=== PATIENT | female | born 1945 | race Caucasian/White ===

== ENCOUNTER → 2016-07-12 13:13 | Outpatient (CLI) | payer MEDICARE, BC | END | disposition home or self-care (01) | LOC: D.MRI 13:13 | DX: M25.511 Pain in right shoulder (principal) ==

== ENCOUNTER → 2017-05-20 13:09 | Outpatient (CLI) | payer MEDICARE, BC | END | disposition home or self-care (01) | LOC: D.CT 13:00 | DX: S92.902A Unspecified fracture of left foot, initial encounter for closed fracture (principal); X58.XXXA Exposure to other specified factors, initial encounter; Y93.89 Activity, other specified; Y92.89 Other specified places as the place of occurrence of the external cause ==

== ENCOUNTER → 2018-02-28 12:45 | Outpatient (CLI) | payer MEDICARE, BC | END | disposition home or self-care (01) | LOC: D.RAD 12:45 | DX: M25.551 Pain in right hip (principal) ==

== ENCOUNTER 2018-03-23 20:55 | Emergency (ER) | payer MEDICARE, BC ==
[~2018-03-23] VITALS: Ht 162.6 cm; Wt 81.6 kg
[2018-03-23 20:58] VITALS: Ht 162.6 cm; Wt 81.6 kg
[2018-03-23] MEDS ORDERED: PROBIOTIC1 EAC1 PO (21:01)
[2018-03-23] MEDS ORDERED: COZAAR100 MG PO (21:01)
[2018-03-23 21:55] LABS: BASOPHILS 0.6 % (0-2); EOSINOPHILS 2.6 % (0-7); HEMOGLOBIN 13.2 g/dL (12-16); IMMATURE GRANULOCYTES 0.3 % (0-5); LYMPHOCYTES 27.7 % (15-50); MCH 27.5 pg (26.0-34.0); MCHC 32.2 g/dL (31.0-37.0); MCV 85.4 fL (80.0-100.0); MEAN PLATELET VOLUME 11.5 fL (7.4-10.4); MONOCYTES 6.9 % (2-11); NEUTROPHILS 61.9 % (40-80); PLATELET COUNT 239 10x3/uL (130-400); RDW 13.7 % (11.5-14.5)
[2018-03-23 21:56] LABS: ALBUMIN 3.6 g/dL (3.4-5.0); ALKALINE PHOSPHATASE 105 U/L (46-116); ALT (SGPT) 25 U/L (10-68); BILIRUBIN - TOTAL 0.13 mg/dL (0.2-1.3); CALC OSMOLALITY 293 mosm/kg (275-300); CALCIUM 9.4 mg/dL (8.5-10.1); CHLORIDE - SERUM 106 mmol/L (98-107); CKMB 2.4 U/L (0.0-3.6); CREATINE KINASE 89 UL (21-215); CREATININE - SERUM 0.9 mg/dL (0.6-1.3); GLUCOSE 183 mg/dL (74-106); POTASSIUM - SERUM 3.4 mmol/L (3.5-5.1); PROTEIN - SERUM 7.1 g/dL (6.4-8.2); SODIUM 144 mmol/L (136-145); TROPONIN-I 0.033 ng/mL (0.000-0.060); UREA NITROGEN 17 mg/dL (7-18); eGFR NON AFRICAN AMERICAN 66 mL/min (90-120)
[2018-03-23 21:59] LABS: APPEARANCE CLEAR (CLEAR); BILIRUBIN NEGATIVE (NEGATIVE); COLOR YELLOW (YELLOW); GLUCOSE NEGATIVE (NEGATIVE); KETONE NEGATIVE (NEGATIVE); NITRITE NEGATIVE (NEGATIVE); PROTEIN NEGATIVE (NEGATIVE); SPECIFIC GRAVITY 1.005 (1.005-1.020); UROBILINOGEN NORMAL (NORMAL)
[2018-03-23 22:07] LABS: APTT 27.3 SECONDS (22.8-39.4); INR 0.91 (0.85-1.17); PROTIME 11.9 SECONDS (11.6-15.0)
[2018-03-23 22:27] LABS: MAGNESIUM - SERUM 1.9 mg/dL (1.8-2.4); TROPONIN-I 0.026 ng/mL (0.000-0.060)
[2018-03-23 22:40] LABS: BASOPHILS 0.6 % (0-2); EOSINOPHILS 2.7 % (0-7); HEMATOCRIT 41.1 % (36.0-48.0); HEMOGLOBIN 13.2 g/dL (12-16); IMMATURE GRANULOCYTES 0.3 % (0-5); LYMPHOCYTES 27.4 % (15-50); MCH 27.5 pg (26.0-34.0); MCHC 32.1 g/dL (31.0-37.0); MCV 85.6 fL (80.0-100.0); MEAN PLATELET VOLUME 12.3 fL (7.4-10.4); PLATELET COUNT 253 10x3/uL (130-400); RDW 13.7 % (11.5-14.5); WBC 9.5 10x3/uL (4.8-10.8)
[2018-03-24 00:58] VITALS: BP 127/77
== END 2018-03-24 01:01 | disposition home or self-care (01) ==
LOC: D.ER 20:55
PROVIDERS: Family Medicine
DX: R00.0 Tachycardia, unspecified (principal); I10 Essential (primary) hypertension

== ENCOUNTER → 2018-04-17 13:52 | Outpatient (CLI) | payer MEDICARE, BC ==
[~2018-04-17 13:52] MED LIST: COZAAR100 MG PO; PROBIOTIC1 EAC1 PO
== END | disposition home or self-care (01) ==
LOC: D.HCCARDIO 13:52
DX: I20.9 Angina pectoris, unspecified (principal)

== ENCOUNTER → 2018-04-28 08:46 | Outpatient (CLI) | payer MEDICARE, BC | END | disposition home or self-care (01) | LOC: D.HCCARDIO 08:30 | DX: I20.9 Angina pectoris, unspecified (principal) ==

== ENCOUNTER 2018-05-29 11:00 | Outpatient (CLI) | payer MEDICARE, BC ==
[~2018-05-29] VITALS: Ht 162.6 cm; Wt 82.3 kg
--- NOTE | ~2018-05-29 | HEMODYNAMI ---
PATIENT:KEVIN CRANE MEDICAL RECORD: [id number] : 49 LOCATION:[facility] ADMISSION DATE: 05/29/18 Generatedon:05/29/201813:18 Patient name: KEVIN CRANE Patient #: [id number] SSN: : 1945 Date of study: 05/29/2018 Page: Of Hemodynamic Procedure Report Patient Data Patient Demographics Procedure consent was obtained First Name: KEVIN Gender: Female Last Name: ROSA MARIA : 1945 Middle Initial: WILLIAM Age: 72 year(s) Patient #: [id number] Race: Unknown Additional ID: [id number] Contact details [address]: [address] [place] [address] State: [place] City: [place] Zip code: [address] Admission Admission Data Admission Date: 05/29/2018 Admission Time: 11:00 Procedure Procedure Types Cath Procedure Diagnostic Procedure LHC LHC w/Coronaries Procedure Description Procedure Date Procedure Date: 05/29/2018 Procedure Start Time: 13:00 Procedure End Time: 13:17 Procedure Staff Name Function Jaiden Arellano MD Performing Physician Efrain Bruno RT Monitor Rahul Alcala RN Nurse Brooke Mosley RT Scrub Procedure Data Cath Procedure Fluoroscopy Diagnostic fluoroscopy Total fluoroscopy Time: 1.6 time: 1.6 min min Diagnostic fluoroscopy Total fluoroscopy dose: 346 dose: 346 mGy mGy Contrast Material Contrast Material Type Amount (ml) Isovue 300 55 Entry Location Entry Primary Successful Side Size Upsize Upsize Entry Closure Succes sful Closure Location (Fr) 1 (Fr) 2 (Fr) Remarks Device Remarks Femoral Right 5 Fr Exoseal artery Estimated blood loss: 10 ml Diagnostic catheters Device Type Used For End Catheter Placement MULTIPACK JL 4.0 5Fr Procedure catheter MULTIPACK 3DRC 5Fr Procedure catheter MULTIPACK Pigtail 5 Fr Procedure catheter Procedure Complications No complications Procedure Medications Medication Administration Route Dosage 0.9% NaCl I.V. 100 ml/hr Oxygen etCO2 Nasal cannula 2 l/min Heparin Flush Bag added to field 2 bags (1000units/500ml NS) Lidocaine 2% S.C. 20 Versed I.V. 1 mg Fentanyl I.V. 50 mcg Versed I.V. 1 mg Fentanyl I.V. 50 mcg Hemodynamics Rest Heart Rate: 68 (bpm) Pressure Samples Time Site Value (mmHg) Purpose Heart Use Rate(bpm) 13:03 AO 151/71(105) Snapshot 72 13:07 LV 156/-6,16 Snapshot 68 13:07 AO 167/70(113) Pullback 67 13:07 LV 161/3,19 Pullback 67 Gradients Valve Time Site 1 Site 2 Mean SEP/DFP Peak To Heart Use (mmHg) (sec/min) Peak Rate (mmHg) (bpm) Aortic 13:07 LV AO 0 14 0 67 161/3,19 167/70(113) Calculations Valve P-P Mean Valve Index Valve Source Name Gradient Area Flow (cm2) Aortic 0 0 0 0 Snapshots Pre Cath Intra NCS Post Cath Vital Signs Time Heart Resp SPO2 etCO2 NIBP (mmHg) Rhythm Pain Sedation Rate (ipm) (%) (mmHg) Status Level (bpm) 12:49:14 67 17 100 35.7 155/73(121) NSR 0 (11) 10(A) , No pain 12:53:34 71 33 99 36.4 143/70(103) NSR 0 (11) 10(A) , No pain 12:57:52 70 13 100 35.7 141/63(111) NSR 0 (11) 10(A) , No pain 13:02:08 67 10 98 26.6 128/68(108) NSR 0 (11) 10(A) , No pain 13:06:18 71 18 97 0 133/71(106) NSR 0 (11) 9(A) , No pain 13:10:32 73 12 98 41.8 131/66(102) NSR 0 (11) 9(A) , No pain 13:14:44 76 12 98 39.5 131/70(115) NSR 0 (11) 9(A) , No pain Medications Time Medication Route Dose Verified Delivered Reason Notes Eff ectiveness by by 12:48:50 0.9% NaCl I.V. 100 Rahul Rahul Per ml/hr Cari Alcala physician RN RN 12:49:01 Oxygen etCO2 2 Rahul Rahul Per Nasal l/min Lorigan Lorigan physician cannula RN RN 12:49:11 Heparin Flush added 2 Rahul Rahul used for Bag to bags Cari Alcala procedure (1000units/500ml field RN RN NS) 12:49:22 Lidocaine 2% S.C. 20ml Rahul Rahul for local vial Lorigan Lorigan anesthetic RN RN 12:55:50 Versed I.V. 1 mg Rahul Rahul for Lorigan Lorigan sedation RN RN 12:56:00 Fentanyl I.V. 50 Rahul Rahul for mcg Lorigan Lorigan sedation RN RN 13:00:31 Versed I.V. 1 mg Rahul Rahul for Lorigan Lorigan sedation RN RN 13:00:37 Fentanyl I.V. 50 Rahul Rahul for mcg Lorigan Lorigan sedation RN home energy consultant Log Time Note 12:38:36 Time tracking: Regular hours (M-F 7:00 - 5:00) 12:38:40 Plan of Care:Hemodynamics will remain stable., Cardiac rhythm will remain stable., Comfort level will be maintained., Respiratory function will remain adequate., Patient/ family verbilizes understanding of procedure., Procedure tolerated without complication., Recovers from procedure without complications.. 12:38:42 Rahul Alcala RN sent for patient. Start room use. 12:39:22 Patient received from Pre/Post Procedure Room to CCL 2 Alert and oriented. Tansferred to table in Supine position. 12:39:23 Warm blankets applied, and magdaleno hugger turned on for patient comfort. 12:39:24 Correct patient and procedure confirmed by team. 12:39:25 Signed procedure consent form obtained from patient. 12:39:26 ECG and BP/O2 sat monitors applied to patient. 12:39:27 Full Disclosure recording started 12:48:03 Vital chart was started 12:48:50 0.9% NaCl 100 ml/hr I.V. was administered by Rahul Alcala RN; Per physician; 12:49:01 Oxygen 2 l/min etCO2 Nasal cannula was administered by Rahul Alcala RN; Per physician; 12:49:11 Heparin Flush Bag (1000units/500ml NS) 2 bags added to field was administered by Rahul Alcala RN; used for procedure; 12:49:22 Lidocaine 2% 20ml vial S.C. was administered by Rahul Alcala RN; for local anesthetic; 12:50:15 Baseline sample Acquired. 12:50:19 Rhythm: sinus rhythm 12:50:30 H&P Date Dictated: 05/29/2018 New H&P dictated by physician.. 12:50:31 Pre-procedure instructions explained to patient. 12:50:31 Pre-op teaching completed and patient verbalized understanding. 12:50:33 Family in patients room. 12:50:35 Patient NPO since Midnight. 12:50:36 Is the patient allergic to Iodine/contrast media? No. 12:50:39 Is patient on blood thinner?No 12:50:41 Patient diabetic? No. 12:50:44 Previous problem with sedation/anesthesia? No ? 12:50:45 Snore? Yes 12:50:46 Sleep apnea? No 12:50:47 Deviated septum? No 12:50:48 Opens mouth fully? Yes 12:50:49 Sticks out tongue? Yes 12:50:50 Airway obstruction? No ? 12:50:52 Dentures? No ? 12:50:54 Modified Matt's test Ulnar > 7 seconds. 12:50:56 FAILED ALLENS 12:50:56 Pre procedure: right dorsailis pedis pulse 1+ Palpable, but thready & weak; easily obliterated 12:50:57 Patient pain scale 0/10 ?. 12:51:02 IV patent on arrival in left forearm with 0.9% NaCl at [facility]. 12:51:04 Lab results completed and on chart. 12:51:08 Right groin area was prepped with chlora-prep and draped in sterile fashion 12:51:22 Alarms reviewed by R. N. 12:51:23 Sharps counted by scrub and verified by R.N. 12:53:59 Use device set Femoral Dx 12:54:46 Tegaderm 4 x 4 ([id number]) opened to sterile field. 12:54:47 ACIST Manifold (98970) opened to sterile field. 12:54:48 ACIST Hand Control (25280) opened to sterile field. 12:54:49 ACIST Syringe (39127) opened to sterile field. 12:54:49 Bag Decanter (2002S) opened to sterile field. 12:54:50 Medline Cath Pack ([id number]) opened to sterile field. 12:54:51 DIAGNOSTIC WIRE .035 260cm J wire (404947) opened to sterile field. 12:54:52 DIAGNOSTIC Multipack 5Fr catheter set ([id number]) opened to sterile field. 12:54:53 SHEATH 5FR Largo ([id number]) opened to sterile field. 12:55:13 --------ALL STOP TIME OUT------ 12:55:13 Final Timeout: patient, procedure, and site verified with staff and physician. All members of the team are in agreement. 12:55:15 Right groin site verified by team. 12:55:17 Physical assessment completed. ASA score P 2 - A patient with mild systemic disease as per Jaiden Arellano MD. 12:55:20 Sedation plan: IV Moderate Sedation Medication:Versed, Fentanyl 12:55:50 Versed 1 mg I.V. was administered by Rahul Alcala RN; for sedation; 12:56:00 Fentanyl 50 mcg I.V. was administered by Rahul Alcala RN; for sedation; 13:00:31 Versed 1 mg I.V. was administered by Rahul Alcala RN; for sedation; 13:00:32 Procedure started. 13:00:37 Fentanyl 50 mcg I.V. was administered by Rahul Alcala RN; for sedation; 13:00:42 Local anesthetic to right femoral artery with Lidocaine 2% by Jaiden Arellano MD.INITIAL ACCESS ONLY 13:02:05 A 5 Fr sheath was inserted into the Right Femoral artery 13:02:26 A MULTIPACK JL 4.0 5Fr catheter was advanced over the wire and used for Procedure. 13:03:20 LCA angiography performed. 13:04:10 Catheter exchanged over wire. 13:04:15 A MULTIPACK 3DRC 5Fr catheter was advanced over the wire and used for Procedure. 13:05:30 RCA angiography performed. 13:05:54 Catheter exchanged over wire. 13:06:56 A MULTIPACK Pigtail 5 Fr catheter was advanced over the wire and used for Procedure. 13:07:19 LV angiography performed. 13:07:20 LV gram done using BASURTO 13:08:17 LV hemodynamics recorded. 13:08:21 Injector settings: Ml/sec: 10, Volume: 20, 13:08:28 Catheter exchanged over wire. 13:10:01 EXOSEAL 5Fr (EX500) opened to sterile field. 13:10:28 Sheath removed intact; hemostasis achieved with Exoseal to the Right Femoral artery. 13:10:31 Procedure ended.(Physican Out) 13:13:13 Fluoroscopy time 01.60 minutes. 13:13:16 Fluoroscopy dose: 346 mGy 13:13:16 Flurop Dose total: 346 13:13:28 Contrast amount:Isovue 300 55ml. 13:13:30 Sharps counted by scrub and verified by R.N. 13:13:32 Insertion/operative site no bleeding no hematoma. 13:13:34 Post-op/insertion site Right Femoral artery dressed using a 4 x 4 and Tegaderm. 13:13:36 Post Procedure Pulses reassessed and unchanged 13:13:38 Post-procedure physical assessment completed. ASA score P 2 - A patient with mild systemic disease as per Jaiden Arellano MD. 13:13:41 Post procedure rhythm: unchanged. 13:13:44 Estimated blood loss: 10 ml 13:13:45 Post procedure instruction explained to patient.Patient verbalizes understanding. 13:13:46 Patient needs reinforcement of post procedure teaching. 13:13:53 Procedure and supply charges have been captured, reviewed, submitted and are correct. 13:13:56 Procedure Complication : No complications 13:17:30 Vital chart was stopped 13:17:30 See physician's report for complete and final results. 13:17:32 Report given to Pre/Post Procedure Room. 13:17:34 Patient transfered to Pre/Post Procedure Room with Stretcher. 13:17:36 Procedure ended. 13:17:36 Full Disclosure recording stopped 13:17:42 End room use (Document Last) Device Usage Item Name Manufacture Quantity Catalog Hospital Part Current Minimal L ot# / Number Charge Number Stock Stock Serial# Code Tegaderm 4 3M 1 1626W [id number] [id number] 150521 5 x 4 (1626W) ACIST Acist 1 07137 428782 521280 182790 5 Manifold Medical (68285) Systems Inc ACIST Hand Acist 1 74513 604993 498218 882563 5 Control Medical (75181) Systems Inc ACIST Acist 1 04560 335466 159771 792021 20 Syringe Medical (95080) Systems Inc Bag Microtek 1 2002S 899073 89584 197998 5 Decanter Medical Inc. (2002S) Medline Medline 1 [id number] 224161 10633 855928 5 Cath Pack ([id number]) DIAGNOSTIC St Jaskaran 1 262430 226769 474050 057264 30 WIRE .035 260cm J wire (144813) DIAGNOSTIC Cardinal 1 UC9740 837962 90853 971341 30 Multipack Health 5Fr catheter set (ER4885) SHEATH 5FR Terumo 1 JFW025 346856 914996 208789 5 Largo ([id number]) MULTIPACK Cardinal 1 322266 5 JL 4.0 5Fr Health catheter MULTIPACK Cardinal 1 458106 5 3DRC 5Fr Health catheter MULTIPACK Cardinal 1 858649 5 Pigtail 5 Health Fr catheter EXOSEAL 5Fr Cardinal 1 EX500 485268 448103 002585 10 (EX500) Health Signature Audit [place] Stage Time Signature Unsigned Intra-Procedure 05/29/2018 Efrain Bruno 1:18:02 PM RT(R) Signatures Monitor : Efrain Bruno RT Signature : Date : Time : [place] [id number] [facility] [place] [address]
[2018-05-29] MEDS ORDERED: FISH OIL 1,0001 CA1 PO (11:13)
[2018-05-29] MEDS ORDERED: TOPROL XL25 MG PO (11:13)
[2018-05-29 11:24] VITALS: BP 167/67; Ht 162.6 cm; Wt 82.3 kg
[2018-05-29 11:35] LABS: BASOPHILS 0.6 % (0-2); EOSINOPHILS 3.2 % (0-7); HEMOGLOBIN 13.9 g/dL (12-16); IMMATURE GRANULOCYTES 0.2 % (0-5); LYMPHOCYTES 25.9 % (15-50); MCH 27.5 pg (26.0-34.0); MCHC 32.3 g/dL (31.0-37.0); MEAN PLATELET VOLUME 11.8 fL (7.4-10.4); MONOCYTES 7.2 % (2-11); NEUTROPHILS 62.9 % (40-80); PLATELET COUNT 240 10x3/uL (130-400); RBC 5.06 10x6/uL (4.00-5.40); RDW 13.9 % (11.5-14.5)
[2018-05-29 11:51] LABS: ANION GAP 12.3 mmol/L (8-16); CALCIUM 8.9 mg/dL (8.5-10.1); CARBON DIOXIDE 26.8 mmol/L (21.0-32.0); CREATININE - SERUM 0.9 mg/dL (0.6-1.3); POTASSIUM - SERUM 4.1 mmol/L (3.5-5.1)
[2018-05-29] MEDS ORDERED: ISOSORBIDE MONO30 M1 PO (13:31)
--- NOTE | 2018-05-29 13:40 | NUR ---
RIGHT GROIN DRESSING C/D/I. NO S/S OF HEMATOMA NOTED. RIGHT PEDAL PULSE PALPABLE. PT STILL DROWSY. FAMILY AT BEDSIDE.
--- NOTE | 2018-05-29 13:45 | NUR ---
GAVE PT'S FAMILY A HANDOUT ON IMDUR.
--- NOTE | 2018-05-29 14:25 | NUR ---
RIGHT GROIN DRESSING C/D/I. NO S/S OF HEMATOMA NOTED. RIGHT PEDAL PULSE PALPABLE. PT'S HEAD OF BED INCREASED. SET UP WITH SANDWICH TRAY. FAMILY AT BEDSIDE. VSS AT THIS TIME.
--- NOTE | 2018-05-29 15:00 | NUR ---
LEFT FA PIV D/C'D WITH CATH TIP INTACT. PT TOLERATED WELL. PT INSTRUCTED TO GET DRESSED.
--- NOTE | 2018-05-29 15:24 | NUR ---
DISCUSSED DISCHARGE INSTRUCTIONS WITH PT AND PT'S FAMILY. THEY VOICED UNDERSTANDING. RIGHT GROIN DRESSING C/D/I. SOFT TO TOUCH. NO S/S OF HEMATOMA. RIGHT PEDAL PULSE PALPABLE.
--- NOTE | 2018-05-29 15:35 | NUR ---
PT TAKEN BY WHEELCHAIR. STOPPED AT RESTROOM AND VOIDED WITHOUT DIFFICULTY. NO S/S OF DISTRESS NOTED. TAKEN OUT TO VEHICLE. ALL BELONGINGS IN HAND.
== END 2018-05-29 15:35 | disposition home or self-care (01) ==
LOC: D.CATH 11:00
PROVIDERS: Internal Medicine Cardiovascular Disease
DX: I25.119 Atherosclerotic heart disease of native coronary artery with unspecified angina pectoris (principal); R94.30 Abnormal result of cardiovascular function study, unspecified; I10 Essential (primary) hypertension

== ENCOUNTER → 2018-06-06 07:36 | Outpatient (CLI) | payer MEDICARE, BC ==
[2018-05-29 11:24] VITALS: BMI 31.1
[~2018-06-06 07:36] MED LIST changes: +FISH OIL 1,0001 CA1 PO; +ISOSORBIDE MONO30 M1 PO; +TOPROL XL25 MG PO
== END | disposition home or self-care (01) ==
LOC: D.US 07:36
DX: R10.13 Epigastric pain (principal)

== ENCOUNTER → 2019-05-29 10:03 | Outpatient (CLI) | payer MEDICARE, BC ==
[2018-05-29 11:24] VITALS: BMI 31.1
== END | disposition home or self-care (01) ==
LOC: D.HCCECHO 10:03
PROVIDERS: ATTEND Internal Medicine Cardiovascular Disease
DX: I10 Essential (primary) hypertension (principal)